=== PATIENT | male | born 1960 | race Caucasian/White ===

== ENCOUNTER 2020-03-27 14:27 | Emergency (ER) | payer BC, OTHER ==
[2020-03-27] MEDS ORDERED: Ondansetron 4 MG/2 ML SDV IVPUSH ONE (14:39)
--- NOTE | 2020-03-27 14:39 | EDM.PDOC ---
ED HPI GENERAL MEDICAL PROBLEM - General Chief Complaint: Abdominal Pain Stated Complaint: STOMACH PAIN Time Seen by Provider: 03/27/20 14:37 Source of Information: Reports: Patient, RN Notes Reviewed History Limitations: Reports: No Limitations - History of Present Illness INITIAL COMMENTS - FREE TEXT/NARRATIVE: Patient is a 60-year-old male who presents to the ED for the evaluation of his lower abdomen pain. Patient notes this has been present since Saturday. He states this is been in his bilateral lower abdomen, and has been worsening over the past couple days. Patient states that the pain is constant, and sharp and stabbing in characteristics. He does not really find anything that necessarily makes it worse or better. He notes he does have a history of diverticulitis, and it feels very similar to his pain he is felt in the past due to that. He is complaining some mild nausea but no vomiting or diarrhea. States his last bowel movement was today. He did not note any sort of blood or discoloration to the stool. He denies any further urinary issues. He denies any other sick- like issues. Patient thought maybe he had a fever last night but did not take his temperature, he is not complaining of any cough or shortness of breath or other sick-like symptoms. Patient notes he did not get much sleep due to the pain. Patient's primary care provider is Dr. Bobo Telles. He states that he is not had any abdomen surgeries. He notes that he is due to have a colonoscopy, sometime this year. - Related Data Allergies Allergy/AdvReac Type Severity Reaction Status Date / Time No Known Allergies Allergy Verified 03/27/20 14:44 Home Meds: Home Meds Acetaminophen/HYDROcodone [[place] 325-5 MG] 1 tab PO Q6H PRN #15 tablet 03/27/20 [Rx] Amoxicillin/Clavulanate K [Augmentin 875-125 MG] 1 tab PO BID #14 tablet [Rx] Metoprolol Succinate [Toprol XL] 25 mg PO DAILY 03/27/20 [History] Past Medical History Cardiovascular History: Reports: Hypertension Social & Family History - Tobacco Use Smoking Status *Q: Never Smoker - Alcohol Use Alcohol Use History: No - Recreational Drug Use Recreational Drug Use: No ED ROS GENERAL - Review of Systems Review Of Systems: Comprehensive ROS is negative, except as noted in HPI. ED EXAM, GI/ABD - Physical Exam Exam: See Below Exam Limited By: No Limitations General Appearance: Alert, WD/WN, No Apparent Distress Throat/Mouth: Normal Inspection, Normal Lips, Normal Teeth, Normal Gums, Normal Oropharynx, Normal Voice, No Airway Compromise Head: Atraumatic, Normocephalic Neck: Normal Inspection Respiratory/Chest: No Respiratory Distress, Lungs Clear, Normal Breath Sounds, No Accessory Muscle Use, Chest Non-Tender Cardiovascular: Normal Peripheral Pulses, Regular Rate, Rhythm, No Murmur GI/Abdominal Exam: Normal Bowel Sounds, Soft, No Distention, No Mass, Tender ( bilateral lower abdomen) Extremities: Normal Inspection, Normal Capillary Refill Neurological: Alert, Oriented, Normal Cognition, No Motor/Sensory Deficits Psychiatric: Normal Affect, Normal Mood Skin Exam: Warm, Dry, Intact, Normal Color, No Rash Course - Vital Signs Last Recorded V/S: Last Vital Signs Temp 98.1 F 03/27/20 14:33 Pulse 68 03/27/20 14:33 Resp 16 03/27/20 14:33 BP 138/84 03/27/20 14:33 Pulse Ox 97 03/27/20 14:33 - Orders/Labs/Meds Orders: Active Orders 24 hr Category Date Time Status Abdomen Pelvis w Cont [CT] Stat Exams 03/27/20 14:39 Ordered Sodium Chloride 0.9% [Normal Saline] 1,000 ml Med 03/27/20 14:45 Ordered IV ASDIRECTED Medication Orders Sodium Chloride (Normal Saline) 1,000 mls @ 999 mls/hr IV ASDIRECTED SHARON Last Admin: 03/27/20 14:52 Dose: 999 mls/hr Labs: Laboratory Tests 03/27/20 03/27/20 03/27/20 Range/Units 14:50 14:50 14:50 WBC 9.13 H (4.23-9.07) K/mm3 RBC 4.81 (4.63-6.08) M/mm3 Hgb 14.3 (13.7-17.5) gm/dl Hct 41.6 (40.1-51.0) % MCV 86.5 (79.0-92.2) fl MCH 29.7 (25.7-32.2) pg MCHC 34.4 (32.2-35.5) g/dl RDW Std Deviation 41.8 (35.1-43.9) fL Plt Count 176 (163-337) K/mm3 MPV 10.1 (9.4-12.3) fl Neutrophils % (Manual) 71 H (40-60) % Band Neutrophils % 0 (0-10) % Lymphocytes % (Manual) 15 L (20-40) % Atypical Lymphs % 0 % Monocytes % (Manual) 8 (2-10) % Eosinophils % (Manual) 4 (0.8-7.0) % Basophils % (Manual) 2 H (0.2-1.2) Platelet Estimate Adequate RBC Morph Comment Normal Sodium 138 (136-145) mEq/L Potassium 4.0 (3.5-5.1) mEq/L Chloride 105 (98-107) mEq/L Carbon Dioxide 25 (21-32) mEq/L Anion Gap 12.0 (5-15) BUN 15 (7-18) mg/dL Creatinine 1.2 (0.7-1.3) mg/dL Est Cr Clr Drug Dosing 73.65 mL/min Estimated GFR (MDRD) > 60 (>60) mL/min BUN/Creatinine Ratio 12.5 L (14-18) Glucose 96 (74-106) mg/dL Calcium 8.3 L (8.5-10.1) mg/dL Total Bilirubin 0.9 (0.2-1.0) mg/dL AST 37 (15-37) U/L ALT 44 (16-63) U/L Alkaline Phosphatase 58 (46-116) U/L C-Reactive Protein (<1.0) mg/dL Total Protein 7.2 (6.4-8.2) g/dl Albumin 3.5 (3.4-5.0) g/dl Globulin 3.7 gm/dL Albumin/Globulin Ratio 1.0 (1-2) Lipase 229 (73-393) U/L Urine Color (Yellow) Urine Appearance (Clear) Urine pH (5.0-8.0) Ur Specific [place] (1.005-1.030) Urine Protein (Negative) Urine Glucose (UA) (Negative) Urine Ketones (Negative) Urine Occult Blood (Negative) Urine Nitrite (Negative) Urine Bilirubin (Negative) Urine Urobilinogen (0.2-1.0) Ur Leukocyte Esterase (Negative) Urine RBC (0-5) /hpf Urine WBC (0-5) /hpf Ur Squamous Epith Cells (0-5) /hpf Urine Bacteria (FEW) /hpf Urine Mucus (FEW) /hpf 03/27/20 03/27/20 Range/Units 14:50 15:50 WBC (4.23-9.07) K/mm3 RBC (4.63-6.08) M/mm3 Hgb (13.7-17.5) gm/dl Hct (40.1-51.0) % MCV (79.0-92.2) fl MCH (25.7-32.2) pg MCHC (32.2-35.5) g/dl RDW Std Deviation (35.1-43.9) fL Plt Count (163-337) K/mm3 MPV (9.4-12.3) fl Neutrophils % (Manual) (40-60) % Band Neutrophils % (0-10) % Lymphocytes % (Manual) (20-40) % Atypical Lymphs % % Monocytes % (Manual) (2-10) % Eosinophils % (Manual) (0.8-7.0) % Basophils % (Manual) (0.2-1.2) Platelet Estimate RBC Morph Comment Sodium (136-145) mEq/L Potassium (3.5-5.1) mEq/L Chloride (98-107) mEq/L Carbon Dioxide (21-32) mEq/L Anion Gap (5-15) BUN (7-18) mg/dL Creatinine (0.7-1.3) mg/dL Est Cr Clr Drug Dosing mL/min Estimated GFR (MDRD) (>60) mL/min BUN/Creatinine Ratio (14-18) Glucose (74-106) mg/dL Calcium (8.5-10.1) mg/dL Total Bilirubin (0.2-1.0) mg/dL AST (15-37) U/L ALT (16-63) U/L Alkaline Phosphatase (46-116) U/L C-Reactive Protein 9.3 H* (<1.0) mg/dL Total Protein (6.4-8.2) g/dl Albumin (3.4-5.0) g/dl Globulin gm/dL Albumin/Globulin Ratio (1-2) Lipase (73-393) U/L Urine Color Yellow (Yellow) Urine Appearance Clear (Clear) Urine pH 6.0 (5.0-8.0) Ur Specific [place] 1.025 (1.005-1.030) Urine Protein Negative (Negative) Urine Glucose (UA) Negative (Negative) Urine Ketones Negative (Negative) Urine Occult Blood Negative (Negative) Urine Nitrite Negative (Negative) Urine Bilirubin Negative (Negative) Urine Urobilinogen 0.2 (0.2-1.0) Ur Leukocyte Esterase Negative (Negative) Urine RBC 0-5 (0-5) /hpf Urine WBC Not seen (0-5) /hpf Ur Squamous Epith Cells Not seen (0-5) /hpf Urine Bacteria Not seen (FEW) /hpf Urine Mucus Not seen (FEW) /hpf Meds: Medications Generic Name Dose Route Start Last Admin Trade Name Freq PRN Reason Stop Dose Admin Sodium Chloride 1,000 mls @ 999 mls/hr 03/27/20 14:45 03/27/20 14:52 Normal Saline IV 999 mls/hr ASDIRECTED SHARON Administration Discontinued Medications Generic Name Dose Route Start Last Admin Trade Name Freq PRN Reason Stop Dose Admin Hydromorphone HCl 1 mg 03/27/20 14:45 03/27/20 14:58 Dilaudid IVPUSH 03/27/20 14:46 1 mg ONETIME ONE Administration Ondansetron HCl 4 mg 03/27/20 14:39 03/27/20 14:52 Zofran IVPUSH 03/27/20 14:40 4 mg ONETIME ONE Administration - Re-Assessments/Exams Free Text/Narrative Re-Assessment/Exam: 03/27/20 14:50 Patient presents to the ED for evaluation of his bilateral lower abdomen pain. Have ordered some lab work, abdomen pelvis CT with IV and oral contrast, some IV fluids, 4 mg Zofran and 1 mg Dilaudid for initial management. 03/27/20 17:[address] is done, and demonstrates an area that was suspicious for possible pancreatitis, around the head and third portion of the duodenum. Due to the patient being more painful in his lower abdomen I did not initially put in a lipase, so I did enter lipase order after the CT read. Lipase is within normal limits at 229. I did discuss the patient's labs with Dr. Finnegan and he suggested running a CRP as well. CT demonstrated no sign of diverticulitis, but there are multiple diverticulosis in the descending and sigmoid colon. 03/27/20 17:29 Patient CRP is elevated at 9.6. Which would be suggestive more of diverticulitis even without the findings on the CT. We will treat as such he will get the start of Augmentin here, and some pain medications. Departure - Departure Time of Disposition: 17:31 Disposition: Home, Self-Care 01 Condition: Good Clinical Impression: Diverticulitis - Discharge Information Instructions: Diverticulitis, [id number] Referrals: Bobo Telles Jr, MD [Primary Care Provider] - Forms: ED Department Discharge Additional Instructions: You were evaluated in the ER today regarding your lower abdominal pain. You had some labs done and a abdomen pelvis CT, laboratory was suggestive of possible diverticulitis infection. CT did not show any signs of diverticulitis at this time, nonetheless your symptoms are guiding my treatment plan and we are treating you for diverticulitis at this time. You will be started on Augmentin, please take 1 tab 2 times a day for the next 7 days. You are given also a prescription for pain medication, hydrocodone/acetaminophen 5/325 mg. Take 1 tab every 6 hours as needed for further pain relief. Of note the Augmentin can cause diarrhea, and the [place] or hydrocodone /acetaminophen can cause constipation. Highly recommend you start a probiotic in your diet to help regulate good gut health while being on these medications. Please try to increase your oral fluid intake, and try to instill a high-fiber diet to help prevent further issues from diverticulitis as much as possible. Recommend you follow-up with your primary care provider, for follow-up colonoscopy to make sure everything is getting better as expected when you are feeling better. Please return to the ER at any time if symptoms change or worsen. Sepsis Event Note - Evaluation Sepsis Screening Result: No Definite Risk - Focused Exam Vital Signs: Vital Signs Temp Pulse Resp BP Pulse Ox 03/27/20 14:33 98.1 F 68 16 138/84 97 Date Exam was Performed: 03/27/20 Time Exam was Performed: : - My Orders Last 24 Hours: My Active Orders 03/27/20 14:39 Abdomen Pelvis w Cont [CT] Stat 03/27/20 14:45 Sodium Chloride 0.9% [Normal Saline] 1,000 ml IV ASDIRECTED - Assessment/Plan Last 24 Hours: My Active Orders 03/27/20 14:39 Abdomen Pelvis w Cont [CT] Stat 03/27/20 14:45 Sodium Chloride 0.9% [Normal Saline] 1,000 ml IV ASDIRECTED
[2020-03-27] MEDS ORDERED: HYDROmorphone 1 MG/ML Syringe IVPUSH ONE (14:45)
[2020-03-27] MEDS ORDERED: Sodium Chloride 0.9% 1,000 ML IV SCH (14:45)
[2020-03-27] MEDS ORDERED: Amoxicillin/Clavulanate K 875-125 MG Tab PO ONE (17:30)
[2020-03-27] MEDS ORDERED: Acetaminophen/HYDROcodone 325-5 MG Tab PO ONE (17:31)
--- NOTE | 2020-03-28 09:28 | CT ---
CT abdomen and pelvis Technique: Multiple axial sections were obtained from above the dome of the diaphragm inferiorly through the pubic symphysis. Intravenous and oral contrast has been given. Delayed images were also obtained through the bladder. Comparison: Prior CT abdomen and pelvis exam of 08/05/13. Findings: Inflammatory change is identified off the head and uncinate process of the pancreas between the pancreas and 3rd portion of the duodenum. Mild wall thickening is seen within the duodenum. Findings most likely represent pancreatitis. Other findings: Moderate hiatal hernia is seen. Thickening of the distal esophagus is noted with findings suggesting the possibility of reflux esophagitis. Visualized lung bases show nothing acute. Liver shows diffuse fatty infiltration. Spleen appears within normal limits. Adrenal glands show no nodule. Kidneys show symmetric contrast enhancement without hydronephrosis. Left kidney shows an abnormality off the superior pole which is similar to previous exam and most likely represents a cortical cyst measuring 1.3 cm. Aorta shows no aneurysm. No retroperitoneal adenopathy is seen. Appendix is seen which is normal. No pelvic mass or adenopathy is seen. Prostate gland is enlarged. Diverticuli are seen within the sigmoid colon without findings of diverticulitis. Lesser diverticuli seen within the descending colon. Delayed images shows contrast within the distal ureters and within the bladder. Bone window settings were reviewed. Severe disc space narrowing with vacuum disc phenomena noted at L2-3 through L5-S1. Degenerative apophyseal change is noted at the same levels as well as anterior osteophytes. Posterior osteophytes are also noted at L3-4 through L5-S1. Impression: 1. Inflammatory change between the pancreas and duodenum. Findings most likely represent pancreatitis. Duodenitis is possible but most likely is secondary to the pancreatitis. 2. Moderate sized hiatal hernia with thickening of the distal esophageal wall possibly representing reflux esophagitis. 3. Fatty infiltration within the liver. 4. Other findings as described above which are nonacute. Diagnostic code #3 This report was dictated in MDT I agree with preliminary report from julisa, finalized on 03/27/20, 5:36 PM Central Daylight Time
== END 2020-03-27 18:00 | disposition home or self-care (01) ==
LOC: JD.ED 14:27
DX: K57.32 Diverticulitis of large intestine without perforation or abscess without bleeding (principal); I10 Essential (primary) hypertension; Z79.899 Other long term (current) drug therapy
CPT/HCPCS: 36415; 74177; 80053; 81001; 83690; 85007; 85027; 86140; 93005; 96361; 96374; 96375; 99284; A9270; J1170; J2405; J7030